=== PATIENT | male | born 1975 | race Two or more races ===

== ENCOUNTER 2023-01-28 17:12 | Emergency (ER) | payer MEDICAID ==
[~2023-01-28] VITALS: Ht 182.9 cm; Wt 114.8 kg
[2023-01-28] MEDS ORDERED: CHLORDIAZEPOXIDE HCL 25 MG CAPSULE PO ONE (18:30)
[2023-01-28] MEDS ORDERED: KETOROLAC TROMETHAMINE INJ 30 MG/ML VIAL IV ONE (18:30)
[2023-01-28] MEDS ORDERED: IV NS 0.9% 1,000 ML BAG IV ONE (18:30)
--- NOTE | 2023-01-28 18:40 | NUR ---
20G LAC IV ESTABLISHED, BLOODWORK COLLECTED AND SENT TO LAB. LINE FLUSHED. PT TOLERATED WELL
[2023-01-28] MEDS ORDERED: KETOROLAC TROMETHAMINE 15 MG/ML VIAL ONE (18:45)
[2023-01-28] MEDS ORDERED: CHLORDIAZEPOXIDE HCL 25 MG CAPSULE ONE (18:45)
--- NOTE | 2023-01-28 18:54 | NUR ---
uRINE SAMPLE COLLECTED AND SENT TO LAB
--- NOTE | 2023-01-28 18:54 | NUR ---
ADDENDUM: Intravenous End Time Documentation: Normal saline 1 liter (IV-WO) : start time:1853 ; end time: 1953 : IV site: LAC PIV # 20 Port # 1
[2023-01-28 18:59] LABS: BASOPHILS % (AUTO) 0.3 % (0.0-2.0); HEMATOCRIT 48 % (39-51); LYMPHOCYTES # (AUTO) 1.5 K/uL (0.8-4.8); LYMPHOCYTES % (AUTO) 9.7 % (20.0-44.0); MEAN CORPUSCULAR HGB CONC 33 g/dl (31.0-36.0); MEAN CORPUSCULAR VOLUME 101 fL (80-96); MONOCYTES # (AUTO) 1.7 K/uL (0.1-1.30); MONOCYTES % (AUTO) 11.2 % (2.0-12.0); NEUTROPHILS # (AUTO) 11.9 K/uL (1.8-8.9); NEUTROPHILS % (AUTO) 78.8 % (43.0-81.0); PLATELET COUNT (AUTO) 243 K/uL (150-450); RED BLOOD CELL COUNT(AUTO) 4.75 MIL/uL (4.5-6.0); WHITE BLOOD COUNT (AUTO) 15.1 K/uL (4.3-11.0)
[2023-01-28] MEDS ORDERED: LORAZEPAM INJ 2 MG/ML VIAL IV ONE (19:00)
[2023-01-28 19:08] LABS: CARBON DIOXIDE 27 mmol/L (21-32); CHLORIDE 102 mmol/L (98-107); CREATININE 1.5 mg/dL (0.6-1.3); GLUCOSE 116 mg/dL (74-106); POTASSIUM 3.8 mmol/L (3.5-5.1); SODIUM SERUM 141 mmol/L (136-145); UREA NITROGEN, BLOOD 16 mg/dL (7-18)
--- NOTE | 2023-01-28 19:13 | NUR ---
REPORT GIVEN TO SIM RINCON
[2023-01-28 19:20] LABS: ALANINE AMINOTRANSFERASE 71 U/L (12-78); ALBUMIN 4.1 g/dL (3.4-5.0); ALKALINE PHOSPHATASE 72 U/L (46-116); ASPARTATE AMINOTRANSFERASE 31 U/L (15-37); BILIRUBIN,DIRECT 0.2 mg/dL (0.0-0.2); BILIRUBIN,TOTAL 1.4 mg/dL (0.2-1.0); LIPASE 39 U/L (73-393); TOTAL PROTEIN, SERUM 7.9 g/dL (6.4-8.2)
[2023-01-28] MEDS ORDERED: LORAZEPAM INJ 2 MG/ML VIAL ONE (19:26)
--- NOTE | 2023-01-28 19:30 | NUR ---
RECEIVED REPORT FROM SIM LUNA. PATIENT CAME WITH CC OF NAUSEA. PATIENT IS [id number]. ABLE TO MAKE NEEDS KNOWN. ATTACHED TO MONITOR. VITALS CHECKED.
--- NOTE | 2023-01-28 19:45 | NUR ---
PATIENT REFUSED TO HAVE ATIVAN. DR ROMERO MADE AWARE. WASTED THE REST OF MEDICINE WITH SIM GARDNER
[2023-01-28 20:42] LABS: BILIRUBIN,URINE 1+ (NEGATIVE); COLOR,URINE YELLOW (YELLOW); LEUKOCYTE ESTERASE ,URINE NEGATIVE (NEGATIVE); NITRITE, URINE NEGATIVE (NEGATIVE); PROTEIN,URINE 2+ mg/dl (NEGATIVE); UGLUCOSE NEGATIVE (NEGATIVE)
[2023-01-28] MEDS ORDERED: CHLO25CA22 PO (21:21)
[2023-01-28] MEDS ORDERED: ONDA4TAB5 PO (21:21)
[2023-01-28 21:25] LABS: BACTERIA,URINE None seen /HPF (None Seen); SQUAMOUS EPITHELIAL CELL,UR 0-2 /HPF (None Seen); WBC,URINE 0-2 /HPF (0-3)
[2023-01-28 21:26] LABS: MUCUS,URINE Few /LPF (None Seen)
--- NOTE | 2023-01-28 21:29 | NUR ---
Patient discharged to home in stable condition. Written and verbal after care instructions given. Patient verbalizes understanding of instruction.
[2023-01-28 21:30] VITALS: BP 121/77
== END 2023-01-28 21:30 | disposition home or self-care (01) ==
LOC: ER 17:17
DX: R11.2 Nausea with vomiting, unspecified (principal); E86.0 Dehydration; D72.829 Elevated white blood cell count, unspecified; R74.8 Abnormal levels of other serum enzymes; D75.89 Other specified diseases of blood and blood-forming organs; F10.10 Alcohol abuse, uncomplicated; E66.9 Obesity, unspecified; Z68.34 Body mass index [BMI] 34.0-34.9, adult; Y90.9 Presence of alcohol in blood, level not specified
CPT/HCPCS: 99285; 96374; 71045; 96361; 93005; 85025; 80048; 83690; 80076; 81001; 36415; 84484; J7030; A4223; J1885; J2060